=== PATIENT | female | born 1955 | race Caucasian/White ===

== ENCOUNTER 2017-06-06 05:28 | Emergency (ER) | payer OTHER ==
[~2017-06-06] VITALS: Ht 172.7 cm; Wt 83.9 kg
[~2017-06-06 05:28] MED LIST: AZITHROMYCIN 2250 MG PO; CELEBREX 200 M200 M1 PO; DAY TIME COLD-237 ML PO; NORCO 5-325 TA1 EACH PO; PROMETHAZINE-D120 ML PO; SINUS NASAL SPR30 M1 NS
[2017-06-06 06:25] LABS: INFLUENZA A ANTIGEN None Detected (None Detect)
[2017-06-06 06:58] LABS: ABSOLUTE EOSINOPHILS 0.1 thou/uL (0.0-0.7); ABSOLUTE LYMPHOCYTES 0.9 thou/uL (0.8-5.3); ABSOLUTE MONOCYTES 0.5 thou/uL (0.0-1.2); ABSOLUTE NEUTROPHILS 5.2 thou/uL (1.6-8.1); BASOPHILS 0.6 %; EOSINOPHILS 1.3 %; HEMOGLOBIN 14.1 gm/dL (12.0-15.0); MCH 31.8 pg (26.0-34.0); MCHC 34.3 g/dL (28.0-37.0); MCV 92.9 fL (80.0-100.0); MONOCYTES 6.9 %; MPV 8.1 fl. (7.2-11.1); NUCLEATED RBCS 0 /100WBC; PLATELET COUNT* 201 thou/uL (150-400); POLYS 78.2 %; RBC 4.42 mil/uL (4.20-5.00); WBC 6.7 thou/uL (4.0-11.0)
[2017-06-06 06:59] LABS: BE 2.2 mmol/L (-2 to +3); HCO3 26.1 mmol/L (22.0-26.0); PCO2 38.3 mmHg (35.0-45.0); pH 7.451 (7.340-7.450)
[2017-06-06 07:03] LABS: PO2 51.9 mmHg (75.0-100.0)
[2017-06-06 07:11] LABS: CALCIUM 8.2 mg/dL (8.5-10.1); CREATININE 0.7 mg/dL (0.6-1.3); POTASSIUM 4.6 mmol/L (3.5-5.1)
[2017-06-06 07:16] LABS: ALBUMIN 3.5 g/dL (3.4-5.0); TOTAL BILIRUBIN 0.2 mg/dL (<0.1-1.0)
[2017-06-06] MEDS ORDERED: PREDNISONE 20 M20 M1 PO (08:23)
[2017-06-06] MEDS ORDERED: OSELB75 PO (08:23)
[2017-06-06] MEDS ORDERED: VENTOLIN HFA 1818 GM INH (08:23)
[2017-06-06] MEDS ORDERED: ZPAK PO (08:23)
[2017-06-06 08:29] VITALS: BP 100/69
== END 2017-06-06 08:39 | disposition home or self-care (01) ==
LOC: M.ERS 05:28
PROVIDERS: Personal Emergency Response Attendant
DX: J40 Bronchitis, not specified as acute or chronic (principal); J11.1 Influenza due to unidentified influenza virus with other respiratory manifestations; M19.90 Unspecified osteoarthritis, unspecified site; F17.210 Nicotine dependence, cigarettes, uncomplicated; F10.99 Alcohol use, unspecified with unspecified alcohol-induced disorder

== ENCOUNTER → 2017-06-21 | Outpatient (CLI) | payer OTHER ==
[~2017-06-21] MED LIST changes: +AMITRIPTYLINE H25 M2 PO; +OSELB75 PO; +PREDNISONE 20 M20 M1 PO; +VENTOLIN HFA 1818 GM INH; +ZPAK PO
== END ==
LOC: M.RAD 12:51
DX: Z12.31 Encounter for screening mammogram for malignant neoplasm of breast (principal); R05 Cough

== ENCOUNTER 2017-10-16 20:18 | Emergency (ER) | payer OTHER ==
[~2017-10-16] VITALS: Ht 170.2 cm; Wt 77.1 kg
[~2017-10-16 20:18] MED LIST changes: -AMITRIPTYLINE H25 M2 PO
[2017-10-16] MEDS ORDERED: AMITRIPTYLINE H25 M2 PO (20:34)
[2017-10-16 21:35] VITALS: BP 118/52
== END 2017-10-16 21:36 | disposition home or self-care (01) ==
LOC: M.ERS 20:18
DX: S40.021A Contusion of right upper arm, initial encounter (principal); M19.90 Unspecified osteoarthritis, unspecified site; F17.210 Nicotine dependence, cigarettes, uncomplicated; W01.0XXA Fall on same level from slipping, tripping and stumbling without subsequent striking against object, initial encounter; Y93.89 Activity, other specified; Y92.89 Other specified places as the place of occurrence of the external cause; Y99.8 Other external cause status

== ENCOUNTER → 2018-06-29 | Outpatient (CLI) | payer OTHER ==
[~2018-06-29] MED LIST changes: +AMITRIPTYLINE H25 M2 PO
== END ==
LOC: M.RAD 06-27 15:08
DX: Z12.31 Encounter for screening mammogram for malignant neoplasm of breast (principal); F17.290 Nicotine dependence, other tobacco product, uncomplicated; Z78.0 Asymptomatic menopausal state

== ENCOUNTER → 2020-02-23 | Outpatient (CLI) | payer MEDICARE, OTHER | LOC: M.RAD 14:00 | PROVIDERS: ATTEND Family Medicine | DX: Z12.31 Encounter for screening mammogram for malignant neoplasm of breast (principal) ==

== ENCOUNTER → 2021-02-25 | Outpatient (CLI) | payer MEDICARE, OTHER | LOC: M.RAD 13:00 | PROVIDERS: ATTEND Family Medicine | DX: Z12.31 Encounter for screening mammogram for malignant neoplasm of breast (principal) ==